=== PATIENT | male | born 1975 | race Caucasian/White ===

== ENCOUNTER → 2017-09-22 | Outpatient (CLI) | payer OTHER ==
[~2017-09-22] MED LIST: ALLO-119 PO; ALPR-429 PO; COLC0.6T2 PO; DICL-195 PO; ESCI10TA8 PO; HYDR-389 PO; INDO50SU3 PO; LISI-362 PO; LISI5TAB25 PO; LOR5/325 PO; METH4TAB66 PO; OXYC-865 PO; TURM500C7 PO; [UNRECOGNIZED DRUG - CODE] PO
[2017-09-22 08:21] LABS: PLATELET COUNT, AUTOMATED 299 K/uL (150-450)
[2017-09-22 08:45] LABS: LDL CHOLESTEROL 132 mg/dl
== END ==
LOC: LAB 08:05
PROVIDERS: ATTEND Internal Medicine
DX: E78.5 Hyperlipidemia, unspecified (principal); F41.8 Other specified anxiety disorders; M10.9 Gout, unspecified; I10 Essential (primary) hypertension; E66.9 Obesity, unspecified
CPT/HCPCS: 36415; 82040; 82247; 82310; 82374; 82435; 82465; 82565; 82947; 83718; 84075; 84132; 84155; 84295; 84402; 84403; 84443; 84450; 84460; 84478; 84520; 84550; 85025